=== PATIENT | female | born 1935 | race African-American/Black ===

== ENCOUNTER 2021-08-17 10:11 | Inpatient (IN) | payer MEDICARE, OTHER ==
[~2021-08-17] VITALS: Ht 162.6 cm; Wt 509.4 kg
--- NOTE | 2021-08-17 10:15 | NUR ---
BOYD 80 FROM HOME C/O SYNCOPAL EPISODE AT 0900H WITNESSED. DENIES INJURY. RESPIRATION IS EVEN AND UNLABORED WITH NO APPARENT DISTRESS. PLACED ON TOXICOLOGIST. WILL CONTINUOUSLY MONITOR THE PATIENT.
--- NOTE | 2021-08-17 10:22 | NUR ---
BERNARDINO VARGAS AT BEDSIDE FOR EKG
[2021-08-17] MEDS ORDERED: IV NS 0.9% 500 ML BAG IV ONE (10:30)
--- NOTE | 2021-08-17 10:37 | NUR ---
ENGINEER SERGEANT AT BEDSIDE
--- NOTE | 2021-08-17 10:38 | NUR ---
BLOOD SPECIMEN AND BLOOD CULTURE WAS COLLECTED. SENT TO THE LAB
[2021-08-17 10:57] LABS: BASOPHILS % (AUTO) 0.3 % (0.0-2.0); EOSINOPHILS % (AUTO) 2.5 % (0.0-6.0); HEMATOCRIT 36 % (33-45); HEMOGLOBIN 11.7 g/dL (11.5-14.8); LYMPHOCYTES # (AUTO) 1.5 K/uL (0.8-4.8); LYMPHOCYTES % (AUTO) 30.7 % (20.0-44.0); MEAN CORPUSCULAR HGB CONC 33 g/dl (31.0-36.0); MEAN CORPUSCULAR VOLUME 99 fL (82-100); MONOCYTES # (AUTO) 0.4 K/uL (0.1-1.30); MONOCYTES % (AUTO) 7.7 % (2.0-12.0); NEUTROPHILS % (AUTO) 58.8 % (43.0-81.0); PLATELET COUNT (AUTO) 217 K/uL (150-450); RED BLOOD CELL COUNT(AUTO) 3.63 MIL/uL (4.0-5.2)
--- NOTE | 2021-08-17 11:04 | NUR ---
Keri sky in ED - 08/17/21 at 1112 by ERENDIRA RT AT BEDSIDE FOR BREATHING TREATMENT
[2021-08-17 11:06] LABS: CALCIUM, SERUM 8.1 mg/dL (8.5-10.1); CARBON DIOXIDE 27 mmol/L (21-32); CHLORIDE 107 mmol/L (98-107); CREATININE 1.1 mg/dL (0.6-1.3); GLUCOSE 162 mg/dL (74-106); POTASSIUM 3.7 mmol/L (3.5-5.1); SODIUM SERUM 140 mmol/L (136-145); UREA NITROGEN, BLOOD 21 mg/dL (7-18)
[2021-08-17 11:14] LABS: ALANINE AMINOTRANSFERASE 19 U/L (12-78); ALBUMIN 3.4 g/dL (3.4-5.0); ALKALINE PHOSPHATASE 41 U/L (46-116); ASPARTATE AMINOTRANSFERASE 19 U/L (15-37); BILIRUBIN,DIRECT 0.1 mg/dL (0.0-0.2); BILIRUBIN,TOTAL 0.3 mg/dL (0.2-1.0); TOTAL PROTEIN, SERUM 6.8 g/dL (6.4-8.2)
--- NOTE | 2021-08-17 11:42 | NUR ---
URINE COLLECTED AND SENT TO LAB
[2021-08-17 11:53] LABS: BILIRUBIN,URINE Negative (NEGATIVE); COLOR,URINE YELLOW (YELLOW); LEUKOCYTE ESTERASE ,URINE Moderate (NEGATIVE); NITRITE, URINE Negative (NEGATIVE); PROTEIN,URINE Trace mg/dl (NEGATIVE); UGLUCOSE Negative (NEGATIVE); UROBILINOGEN,URINE 0.2 EU/dL (0.2)
[2021-08-17 11:55] LABS: BACTERIA,URINE 2+ /HPF (None Seen); SQUAMOUS EPITHELIAL CELL,UR Few /HPF (None Seen)
[2021-08-17] MEDS ORDERED: CEFTRIAXONE 1GM BAG (ER ONLY) 50 ML IV ONE (12:06)
--- NOTE | 2021-08-17 12:15 | NUR ---
COVID SWAB DONE AND SENT TO LAB
[2021-08-17] MEDS ORDERED: MAG HYDROX/AL HYDROX/SIMETH 30 ML UDC PO PRN (12:30)
[2021-08-17] MEDS ORDERED: Z GUARD REMEDY 2 OZ OINT TP PRN (12:30)
[2021-08-17] MEDS ORDERED: CEFTRIAXONE 1GM BAG (ER ONLY) 1 GM/50 ML PIGGYBACK IV ONE (12:30)
[2021-08-17] MEDS ORDERED: ACETAMINOPHEN 325 MG TABLET PO PRN (12:30)
[2021-08-17] MEDS ORDERED: MAGNESIUM HYDROXIDE 30 ML UDC PO PRN (12:30)
[2021-08-17] MEDS ORDERED: ONDANSETRON HCL/PF 4 MG/2 ML VIAL IVP PRN (12:30)
[2021-08-17] MEDS ORDERED: AMLO10TA4 PO (13:14)
[2021-08-17] MEDS ORDERED: CLON0.1T PO (13:14)
[2021-08-17] MEDS ORDERED: ALEN70TA80 PO (13:14)
[2021-08-17] MEDS ORDERED: EZET10TA32 PO (13:14)
[2021-08-17] MEDS ORDERED: ALIR75PE SUBCON (13:38)
[2021-08-17] MEDS ORDERED: BRIM5DRO2 RIGHTEYE (13:38)
[2021-08-17] MEDS ORDERED: DORZ10DR10 RIGHTEYE (13:38)
--- NOTE | 2021-08-17 13:55 | NUR ---
ROOM 306-1
[2021-08-17 13:59] LABS: IRON, SERUM 100 ug/dl (50-175); TOTAL IRON BINDING CAPACITY 213 ug/dl (250-450)
--- NOTE | 2021-08-17 14:10 | NUR ---
REPORT GIVEN TO ROSEMARY WADDELL FOR TIA
[2021-08-17 14:13] LABS: FERRITIN 136 ng/mL (8-388)
[2021-08-17 14:45] VITALS: BP_SYST 140; BP_SYST 141; BP_SYST 145; BP_DIAS 71; BP_DIAS 78; BP_DIAS 85
[2021-08-17] MEDS: IV NS 0.9% 1,000 ML IV PRN (15:28)
--- NOTE | 2021-08-17 15:50 | NUR ---
DRYWALL BOARDHANGER ADMITTING NOTES PT ADMITTED TO UNIT AT 1435 VIA GURNEY ACCOMPANIED BY Santos VILLALOBOSTRANSPORTER AND PT'S SON. PT IS A/O X4. ABLE TO MAKE NEEDS KNOWN, DENIES PAIN OR ANY DISCOMFORTS. PT AND SON ORIENTED TO STAFF AND ROOM. PT ON ROOM AIR, TOLERATING WELL, BREATHING EVEN AND UNLABORED. 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 LUNGS CLEAR ON AUSCULTATION BILATERALLY. ABDOMEN SOFT, NON-TENDER AND NON-DISTENDED WITH POSITIVE BOWEL SOUNDS ON FOUR QUADRANTS. IV ACCESS NOTED ON LAC G#18 INTACT AND PATENT, IVF OF NS @ 75ML/HR STARTED PER MD ORDER. PT PLACED ON EXTERNAL APPRAISAL SPECIALIST WITH CURRENT READING OF NSR, HR ON THE 70'S, NO C/O CARDIAC DISTRESS VOICED AT THIS TIME. SAFETY MEASURES INITIATED: BED PLACED IN LOWEST LOCKED POSITION WITH SR-UP X2, CALL LIGHT AND BEDSIDE TABLE PLACED W/IN EASY REACH OF PT. DR ALVAREZ MADE AWARE OF ADMISSION TO UNIT AND INFORMED TO DO MED RECONCILIATION. WILL CONTINUE TO M
[2021-08-17 16:00] VITALS: BP 128/75
[2021-08-17] MEDS ORDERED: CLONIDINE HCL 0.1 MG TABLET PO SCH (18:00)
--- NOTE | 2021-08-17 18:41 | NUR ---
ADZING AND BORING MACHINE FEEDER CLOSING NOTES PT IN BED AWAKE AND WATCHING TV AT THIS TIME. HOB ELEVATED. A /O X4. ABLE TO MAKE NEEDS KNOWN. ON ROOM AIR, TOLERATING WELL, BREATHING EVEN AND UNLABORED. IV ACCESS ON LAC G#18 INTACT AND PATENT, IVF OF NS @ 75ML/HR INFUSING WELL, NO S/S X OF INFILTRATION AT SITE NOTED. TELE- MONITOR SHOWS CURRENT READING OF NSR, HR ON THE 60-70'S, NO C/O CARDIAC DISTRESS VOICE. ALL NEEDS AND CARE PROVIDED WELL. SAFETY MEASURES MAINTAINED: BED IN LOWEST LOCKED POSITION WITH SR-UP X2, CALL LIGHT AND BEDSIDE TABLE PW/IN EASY REACH OF PT. WILL ENDORSE TIA TO HOSPITALIST PHYSICIAN NURSE.
[2021-08-17 20:00] VITALS: BP 124/59
--- NOTE | 2021-08-17 20:34 | NUR ---
MICROBIOLOGY SOIL SCIENTIST OPENING NOTES: RECEIVED PATIENT AWAKE IN BED, BED IN LOW POSITION, CALL LIGHTS WITHIN REACH, NO COMPLAIN OF PAIN AND DISCOMFORT AT THIS TIME, PATIENT IS AMBULATORY WITH ASSISTACE Addendum: 08/17/21 at 2036 by ROBI PICKENS RN PATIENT IS AMBULATORY WITH ASSISTANCE, ON TELE MONITORING SR-71. PATIENT ACCOMPANIED BY FAMILY, ON REGULAR DIET WITH IV LINE AT LAC#18 WITH ONGOING NSS@75,ML PER /HR INFUSING WELL. PATIENT KEPT CLEAN AND DRY, ALL NEEDS MET, WILL CONTINUE TO MONITOR.
[2021-08-17] MEDS ORDERED: DORZOLAMIDE OPTH 2% 10 ML BOTTLE RIGHTEYE SCH (22:00)
[2021-08-18] VITALS: BP 131/67
[2021-08-18] MEDS: IV NS 0.9% 1,000 ML IV PRN (03:30)
[2021-08-18 04:00] VITALS: BP 143/75
--- NOTE | 2021-08-18 07:03 | NUR ---
320-1 AHSAN BLEVINS PATIENT SLEEP IN BED COMFORTABLY, BED IN LOW POSITION, CALL LIGHTS WITHIN REACH, NO COMPLAIN OF PAIN AND DISCOMFORT AT THIS TIME, PATIENT IS A/OX4 ABLE TO EXPRESS NEEDS, WITH LEFT EYE BLINDED PATIENT IS BRP ON MONITORING FOR FALL, IV LINE AT LAC#18 WITH ONGOING NSS@75ML PER/HR INFUSING WELL, ON RA NO SOB NOTED, PATIENT KEPT CLEAN AND DRY, ALL NEEDS MET, ENDORSE TO INCOMING SHIFT.
[2021-08-18 07:25] LABS: BASOPHILS % (AUTO) 0.5 % (0.0-2.0); EOSINOPHILS % (AUTO) 3.3 % (0.0-6.0); HEMATOCRIT 34 % (33-45); HEMOGLOBIN 11.5 g/dL (11.5-14.8); LYMPHOCYTES # (AUTO) 1.5 K/uL (0.8-4.8); LYMPHOCYTES % (AUTO) 32.4 % (20.0-44.0); MEAN CORPUSCULAR HGB CONC 34 g/dl (31.0-36.0); MEAN CORPUSCULAR VOLUME 98 fL (82-100); MONOCYTES # (AUTO) 0.4 K/uL (0.1-1.30); MONOCYTES % (AUTO) 8.4 % (2.0-12.0); NEUTROPHILS # (AUTO) 2.6 K/uL (1.8-8.9); NEUTROPHILS % (AUTO) 55.4 % (43.0-81.0); PLATELET COUNT (AUTO) 223 K/uL (150-450); RED BLOOD CELL COUNT(AUTO) 3.47 MIL/uL (4.0-5.2); WHITE BLOOD COUNT (AUTO) 4.7 K/uL (4.3-11.0)
--- NOTE | 2021-08-18 07:45 | NUR ---
ZOOGLER OPENING NOTES RECEIVED PATIENT IN BED, AWAKE, A/O X4. PATIENT ON ROOM AIR; BREATHING EVEN AND UNLABORED, NO SOB NOTED. TELE MONITOR WITH A CURRENT READING OF SR 74. NO COMPLAINS OF PAIN. IV ACCESS AT LAC G #18 PRESENT AND INTACT RUNNING NS @ 75 MLS/HR. SAFETY PRECAUTIONS IN PLACE; BED IN LOW POSITION AND LOCKED, RAILS UP X2, CALL LIGHT WITHIN REACH. WILL CONTINUE TO MONITOR PATIENT.
[2021-08-18 07:48] LABS: CALCIUM, SERUM 7.8 mg/dL (8.5-10.1); CREATININE 0.8 mg/dL (0.6-1.3); MAGNESIUM 2.2 mg/dL (1.8-2.4); PHOSPHORUS 2.3 mg/dL (2.5-4.9); POTASSIUM 3.2 mmol/L (3.5-5.1)
[2021-08-18 08:00] VITALS: BP 135/80
[2021-08-18 08:58] VITALS: BP 135/80
[2021-08-18] MEDS ORDERED: AMLODIPINE BESYLATE 10 MG TABLET PO SCH (09:00)
[2021-08-18] MEDS ORDERED: EZETIMIBE 10 MG TABLET PO SCH (09:00)
[2021-08-18] MEDS ORDERED: K PHOS NEUTRAL 250 MG TABLET PO ONE (09:30)
[2021-08-18] MEDS: POTASSIUM CHLORIDE 20 MEQ TAB.PRT.SR PO SCH ×2 (09:50→11:22)
[2021-08-18] MEDS ORDERED: CEFTRIAXONE 1 G in IV D5W 50 ML IV SCH (12:00)
--- NOTE | 2021-08-18 17:01 | NUR ---
RACK PULLER NOTES PATIENT DISCHARGED HOME IN MEDICALLY STABLE CONDITION. FAMILY AT BEDSIDE. ALL DISCHARGE DOCUMENTATIONS READY AND TEACHING REGARDING PHYSICIAN INSTRUCTIONS PROVIDED. PATIENT AND FAMILY VERBALIZED UNDERSTANDING. BELONGINGS ACCOUNTED FOR AND FORM SIGNED WELL. PRESCRIPTION GIVEN. IV LINE REMOVED PRIOR TO LEAVING THE FLOOR. PATIENT LEFT THE UNIT ACCOMPANIED BY FAMILY AND LITERACY TEACHER. PATIENT LEFT THE UNIT VIA WHEELCHAIR AND HOSPITAL IN A PRIVATE CAR.
== END 2021-08-18 16:08 | disposition home or self-care (01) | DRG 73 ==
LOC: ER 10:15 → TELE 14:03 → MED 08-18 07:55
PROVIDERS: ADMIT Internal Medicine; ATTEND Internal Medicine
DX: G90.8 Other disorders of autonomic nervous system (principal); G93.41 Metabolic encephalopathy; N17.0 Acute kidney failure with tubular necrosis; N39.0 Urinary tract infection, site not specified; Z20.822 Contact with and (suspected) exposure to COVID-19; Z90.710 Acquired absence of both cervix and uterus; I10 Essential (primary) hypertension; E87.6 Hypokalemia; E83.39 Other disorders of phosphorus metabolism; B96.89 Other specified bacterial agents as the cause of diseases classified elsewhere
CPT/HCPCS: 36415; 71045-TC; 80048-TC; 80076-TC; 81001; 82728-TC; 83540-TC; 83605-TC; 83735-TC; 84100-TC; 84484-TC; 85025-TC; 85730-TC; 87040-TC; 87081-TC; 87086-TC; 93307-TC; C9803; G0378; J0696; J7030; J7060